=== PATIENT | male | born 1955 | race Caucasian/White ===

== ENCOUNTER 2018-04-04 06:08 | Day surgery (SDC) | payer BC ==
[~2018-04-04] VITALS: Ht 177.8 cm; Wt 100.0 kg
[2018-04-04] MEDS ORDERED: DEXILANT30 MG PO (07:19)
[2018-04-04 07:24] LABS: HEMATOCRIT 43.9 % (42.0-54.0); HEMOGLOBIN 15.2 g/dL (13.5-17.5); MCH 31.2 pg (26.0-34.0); MCHC 34.6 g/dL (31.0-37.0); MCV 90.1 fL (80.0-100.0); MEAN PLATELET VOLUME 9.5 fL (7.4-10.4); RBC 4.87 10x6/uL (4.20-6.10); RDW 13.1 % (11.5-14.5); WBC 4.9 10x3/uL (4.8-10.8)
[2018-04-04 07:25] VITALS: BP 144/87; Ht 177.8 cm; Wt 100.0 kg
[2018-04-04 07:43] LABS: ANION GAP 12.6 mmol/L (8-16); CALCIUM 9.8 mg/dL (8.5-10.1); CARBON DIOXIDE 25.7 mmol/L (21.0-32.0); CREATININE - SERUM 1.1 mg/dL (0.6-1.3); POTASSIUM - SERUM 4.3 mmol/L (3.5-5.1)
== END 2018-04-04 11:00 | disposition home or self-care (01) ==
LOC: D.OPS 06:08
PROVIDERS: Anesthesiology
DX: K57.30 Diverticulosis of large intestine without perforation or abscess without bleeding (principal); Z01.812 Encounter for preprocedural laboratory examination